=== PATIENT | female | born 1940 | race Caucasian/White ===

== ENCOUNTER 2020-01-13 06:05 | Observation (INO) | payer OTHER ==
--- NOTE | 2020-01-12 10:04 | NUR ---
RECEIVED RESPONSE BACK FROM ANESTHESIOLOGIST DR CLAUDIA DARNELL. "INCREASED EOSINOPHILS/ ASTHMA OR ALLERGIC RHINITIS. OK FOR SURGERY. IF DOESN'T HAVE ASTHMA OR ALLERGIC RHINITIS, NEEDS FURTHER EVAL BY PRIMARY MD TO LOOK FOR CAUSE. BUT SURGERY OK."
[~2020-01-13] VITALS: Ht 165.1 cm; Wt 80.2 kg
[2020-01-13 06:39] VITALS: BP 155/73
--- NOTE | 2020-01-13 11:30 | NUR ---
RECEIVED PT FROM OR. AOX4 ABLE TO MAKE NEEDS KNOWN, DENIES DAWSON/DIZZINESS. LUNGS CTA, DENIES SOB/COUGH, RESP E/U, ON 2 L NC O2 96%. DENIES CP/PRESSURE. ABDOMEN SOFT/ROUND, BOWEL SOUNDS ACTIVE, DENIES N/V/D, LBM YESTERDAY. VOIDS FREELY. S/P TOTAL RT KNEE REPLACEMENT, COVERED WITH DERMABOND AND MEPILEX, POLAR CARE CUBE TO DRAIN AND COVERED WITH MAURISIO WRAP. C/O PULSING SENSATION TO RT KNEE, WILL MEDICATE PER EMAR. IV TO LFA 20 G, PATENT AND INFUSING LR 75 ML/HR. CALL LIGHT IN REACH, WILL CONTINUE TO MONITOR.
--- NOTE | 2020-01-13 12:03 | NUR ---
CALLED TO O.R. TO VERIFY PT ADMIT STATUS IF INPT OR OBSERVATION, PER IT IS OBSERVATION STATUS. ADMITTING MADE AWARE OF ABOVE.
--- NOTE | 2020-01-13 12:29 | NUR ---
AT 0000-TOOK PATIENT BELONGINGS TO ROOM 234-B SIGNED TRANSFER BELONGING FORM. PATIENT WAS ALERT AND ORIENTED X4 AWAKE. WALKER PLACED AT BEDSIDE WITH PATIENT NAME ON IT. ALSO INFORMED ASSIGNED NURSE MICHAEL ON THE ABOVE BELONGING LIST.
[2020-01-13 13:11] VITALS: BP 116/58
--- NOTE | 2020-01-13 13:40 | NUR ---
PT MEDICATED FOR PAIN TO RLE
[2020-01-13 16:00] VITALS: BP 104/45
--- NOTE | 2020-01-13 18:24 | NUR ---
PT SITTING UP IN BED, DENIES ANY PAIN OR DISCOMFORT. ENCOURAGE PT TO LET NURSE KNOWN AT ONSET OF PAIN FOR BETTER PAIN MANAGEMENT. PT VERBALIZED UNDERSTANDING. CALL LIGHT IN REACH, WILL CONTINUE TO MONITOR.
--- NOTE | 2020-01-13 19:10 | NUR ---
RECEIVED REPORT FROM EMELY MULLER. PT IS S/P 01/13/20 RIGHT TOTAL KNEE ARTHROPLASTY. PT HAS POLAR CARE AT BEDSIDE. PT DENIES S/S OF PAIN OR DISCOMFORT AT THIS TIME. PT IS AAOX4 AND DENIES DAWSON/DIZZINESS. PT IS [place] [employer]IL[employer] AND HAS HEARING AIDS IN PLACE. PT IS MED-SURG AND DENIES CP/PRESSURE. PT PULSES PALPABLE AND CAP REFILL <3 SEC. PT LUNG SOUNDS CTA ON 2L NC. PT BREATHING E/U. PT DENIES SOB OR RESP DISTRESS. PT ABD SOFT/NONDISTENDED WITH ACTIVE BS X4. PT DENIES N/V/C/D. PT HAS SOLOMON CATH IN PLACE DRAINING YELLOW URINE. PT HAS GENERALIZED WEAKNESS. PT HAS RIGHT KNEE DERMABOND, MEPILEX, POLAR CARE, AND MAURISIO. PT IV TO LFA 20G PATENT/INTACT. LR INFUSING WELL AT 75ML/HR. ALL NEEDS MET AT THIS TIME. CALL LIGHT WITHIN REACH. BED IN LOWEST POSITION. SIDE RAILS X2 UP. WILL CONTINUE TO MONITOR.
[2020-01-13 21:58] VITALS: BP 113/52
--- NOTE | 2020-01-14 00:13 | NUR ---
PT RESTING COMFORTABLY WITH EYES CLOSED, EASILY AROUSABLE. PER EMAR, ADMINISTERED ANCEF IVPB AT 200ML/HR. PT C/O RIGHT KNEE PAIN 12/26. PER EMAR, ADMINISTERED DILAUDID 1MG IVP AT THIS TIME. WILL REASSESS PAIN. ICE IN POLAR ICE BOX STILL ADEQUATE. ALL NEEDS MET. WILL CONTINUE TO MONITOR.
[2020-01-14 04:44] VITALS: BP 101/48
--- NOTE | 2020-01-14 06:34 | NUR ---
PT RESTED COMFORTABLY WITH EYES CLOSED DURING THE NIGHT, EASILY AROUSABLE. NO ACUTE DISTRESS NOTED. ALL QUESTIONS AND CONCERNS ANSWERED. COMFORT AND SAFETY MEASURES MAINTAINED. PT C/O RIGHT KNEE PAIN AND WAS MEDICATED WITH DILAUDID IVP PER EMAR. PT BREATHING E/U ON RA AND DENIES SOB OR RESP DISTRESS. PT IV PATENT/INTACT. LR INFUSING WELL AT 75ML/HR. PT HAS POLAR ICE ATTACHED TO RIGHT KNE. WILL ENDORSE TO DAY SHIFT NURSE.
--- NOTE | 2020-01-14 07:00 | NUR ---
RECEIVED REPORT FROM NIGHT RN Pt LYING IN BED WITH EYES CLOSED BUT AROUSABEL. A&O X4 DENIES ANY HEADACHE OR PAIN. WEARS BILAT HEARING AIDS. PEDAL PULSE WEAK BILAT AND RADIAL PULSE MODERATE BILAT. LUNGS CTA BILAT 2L NC DENIES ANY SOB. SOLOMON DRAINING TO GRAVITY YELLOW URINE NOTED. RIGHT KNEE WRAPPED AND ICE PACK APPLIED DRESSING C/D/I. IV ON LFA PATENT AND INTACT NO REDNESS OR EDEMA. ALL NEEDS ADDRESSED AT THIS ITME. SAFETY PRECAUTIONS IN PLACE. WILL CONTINUE TO MONITOR.
[2020-01-14 07:24] LABS: BASOPHIL % 0.3 % (0-2); PLATELET COUNT 198 x10^3mcL (130-400)
[2020-01-14 07:43] LABS: CALCIUM 8.4 mg/dL (8.5-10.1); CARBON DIOXIDE 29.4 mmol/L (21-32); CHLORIDE SERUM 101 mmol/L (98-107); CREATININE SERUM 0.8 mg/dL (0.6-1.0); GLUCOSE SERUM 109 mg/dL (74-106); POTASSIUM SERUM 3.4 mmol/L (3.5-5.1); SODIUM SERUM 137 mmol/L (136-145)
[2020-01-14 07:45] VITALS: BP 121/53
--- NOTE | 2020-01-14 09:16 | NUR ---
Pt AMBULATING IN HALLWAY WITH PT WITH 4WW STEADY GAIT NOTED Pt DENIES PAIN AT THIS TIME
--- NOTE | 2020-01-14 11:10 | NUR ---
Pt C/O VOMITING AFTER BREAKFAST DENIES NAUSEA SPOKE TO DIETARY ADDRESSED ISSUE.
--- NOTE | 2020-01-14 11:40 | NUR ---
Pt C/O 710 PAIN ON RIGHT KNEE ADMINISTERED TORADOL IVP PER JUL Pt TOLERATED WELL NO ADVERSE REACTIONS NOTED.
--- NOTE | 2020-01-14 13:37 | NUR ---
Pt LYING IN BED WITH EYES CLOSED NO S/S OF ANY PAIN
--- NOTE | 2020-01-14 14:34 | NUR ---
NEW IV INSERTION 22G ON RFA PATENT AND INTACT INFUSING WELL. IV ON LFA INFILTRATED D/C'D IV CATHETER INTACT DRESSING APPLIED. Pt TOLERATED WELL
--- NOTE | 2020-01-14 15:32 | NUR ---
RECEIVED TELEPHONE ORDER FROM DR TEE FOR K+ TAB 40 THEE ONCE READBACK AND CONFIRMED. ALSO ORDER FOR DISCHARGE. WILL CARRY OUT ORDER
[2020-01-14 15:56] VITALS: BP 123/44
--- NOTE | 2020-01-14 16:27 | NUR ---
Discharge instruction given to Pt understanding verbalized. IV d/c'd on rfa catheter intact dressing applied. Catheter d/c'd Pt tolerated well.All questions and concerns addressed.
--- NOTE | 2020-01-14 17:48 | NUR ---
Pt ESCORTED TO LOBBY VIA WHEEL CHAIR Pt STABLE FOR DISCHARGE FAMILY UPDATED ALL QUESTIONS AND CONCERNS ADDRESSED.
== END 2020-01-14 17:28 | disposition home or self-care (01) ==
LOC: DS 06:05 → DU 10:47 → DS 10:57 → DU 12:04 → MU 12:05
PROVIDERS: ADMIT Orthopaedic Surgery; ATTEND Orthopaedic Surgery
DX: M17.11 Unilateral primary osteoarthritis, right knee (principal)
CPT/HCPCS: 97116-GP; G0378; J0131; J0690; J1170; J1885; J2250; J2270; J3010; J3490; J7120; Q0092

== ENCOUNTER 2020-01-17 23:13 | Emergency (ER) | payer OTHER ==
[~2020-01-17] VITALS: Ht 165.1 cm; Wt 83.5 kg
[2020-01-18 00:58] LABS: BASOPHIL % 0.7 % (0-2); PLATELET COUNT 253 x10^3mcL (130-400); RED CELL DISTRIBUTION WIDTH 13.2 % (11.5-14.5)
[2020-01-18 01:06] LABS: CALCIUM 9.1 mg/dL (8.5-10.1); CARBON DIOXIDE 28.4 mmol/L (21-32); CHLORIDE SERUM 103 mmol/L (98-107); CREATININE SERUM 0.9 mg/dL (0.6-1.0); GLUCOSE SERUM 103 mg/dL (74-106); POTASSIUM SERUM 3.8 mmol/L (3.5-5.1); SODIUM SERUM 139 mmol/L (136-145)
[2020-01-18 01:10] LABS: ALKALINE PHOSPHATASE 65 U/L (46-116); ALT/SGPT 26 U/L (14-59); AST/SGOT 27 U/L (15-37); BILIRUBIN TOTAL 0.7 mg/dL (0.20-1.00); TOTAL PROTEIN, SERUM 6.8 g/dL (6.4-8.2)
[2020-01-18 02:33] VITALS: BP 120/60
== END 2020-01-18 02:33 | disposition home or self-care (01) ==
LOC: ED 23:13
PROVIDERS: Emergency Medicine
DX: M25.461 Effusion, right knee (principal); R60.0 Localized edema; Z96.651 Presence of right artificial knee joint
CPT/HCPCS: Q0092